=== PATIENT | female | born 1990 | race Caucasian/White ===

== ENCOUNTER 2018-09-27 20:28 | Emergency (ER) | payer OTHER ==
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
--- NOTE | 2018-09-27 21:05 | RAD REPORT ---
EXAM DESCRIPTION: CT - C Spine Wo Con - 09/27/2018 8:58 pm COMPARISON: None. TECHNIQUE: Axial 2 mm thick images of the cervical spine were obtained with sagittal and coronal rec onstruction images generated and reviewed. All CT scans are performed using dose optimization technique as appropriate and may include automated exposure control or mA/KV adjustment according to patient size. FINDINGS: Cervical body height and alignment are normal. No disk space narrowing. No fracture or acu te bony abnormality. No paraspinal mass or hematoma. Central canal detail is inherently limited on CT imaging. IMPRESSION: Negative CT cervical spine examination.
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
[2018-09-27] MEDS ORDERED: KETOROLAC 30 MG/ML INJ ONE (22:02)
[2018-09-27] MEDS ORDERED: CYCLOBENZAPRINE 10 MG TAB ONE (22:06)
== END 2018-09-27 22:12 | disposition home or self-care (01) ==
LOC: ER 20:28
DX: S13.9XXA Sprain of joints and ligaments of unspecified parts of neck, initial encounter (principal); V49.9XXA Car occupant (driver) (passenger) injured in unspecified traffic accident, initial encounter
CPT/HCPCS: 70486; 72125; 96372; 99284

== ENCOUNTER 2020-02-06 17:17 | Emergency (ER) | payer OTHER ==
--- OUTSIDE RECORDS SUMMARY | 2020-02-06 19:16 | XMS REPORT | Continuity of Care Document ---
:1990 Author Organization [facility] t Address [address] [place] [address] Dr. Claire [address] [place] [id number] Care Team Providers Name Role Phone Unavailable Unavailable Unavailable Problems This patient has no known problems. Allergies, Adverse Reactions, Alerts This patient has no known allergies or adverse reactions. Medications This patient has no known medications. Procedures This patient has no known procedures. Results This patient has no known results.
[2020-02-06] MEDS ORDERED: NA CHLORIDE 0.9% 1,000 ML ONE (20:06)
[2020-02-06] MEDS ORDERED: METOCLOPRAMIDE 10 MG/2mL INJ ONE (20:06)
[2020-02-06] MEDS ORDERED: ACETAMINOPHEN 500 MG TAB ONE (20:06)
[2020-02-06] MEDS ORDERED: NA CHLORIDE 0.9% 100 ML IV ONE (20:06)
[2020-02-06] MEDS ORDERED: DIPHENHYDRAMINE 50 MG/ML VIAL ONE (20:06)
[2020-02-06 20:10] LABS: Urine Blood NEGATIVE (NEG); Urine Glucose TRACE (NEG); Urine Protein NEGATIVE (NEG)
[2020-02-06 20:23] LABS: Absolute Lymphocytes (CBC) 2.1 K/uL (0.7-4.9); Hematocrit 37.3 % (36.0-45.0); Lymphocytes % 19.9 % (15.3-44.8); MPV 8.8 fL (7.6-11.3); RBC Red Blood Cell Count 4.14 M/uL (3.86-4.86)
[2020-02-06 20:59] LABS: BUN Blood Urea Nitrogen 5 mg/dL (7-18); Bicarbonate 27 mmol/L (21-32); Glucose Level 72 mg/dL (74-106); HCG, Quantitative 11278 mIU/mL (1-3); Potassium 3.6 mmol/L (3.5-5.1); Sodium Level 137 mmol/L (136-145)
--- NOTE | 2020-02-06 21:36 | ER ---
Nurse's Notes [facility] Name: Perico Quigley Age: 30 yrs Sex: Female : 1990 Arrival Date: 02/06/2020 Time: 17:22 Bed 19 Private MD: Diagnosis: 16 weeks gestation of ;Pelvic Pain;Headache Presentation: 02/05 17:26 Chief complaint: Patient states: "I experienced a sharp pain day in my cervix area ss for about 15 minutes and I felt a gerardo of fluid. I'm 16 weeks . But I don't know if it was the bad kind of fluid or if I just peed on myself. I also have headaches now and pain and pressure behind my right eye.". Coronavirus screen: Proceed with normal triage. Patient denies a cough. Patient denies shortness of breath or difficulty breathing. Patient denies measured and/or subjective temperature greater than 100.4F prior to today's visit. Patient denies travel on a cruise ship or to a country the [facility] currently lists as an affected area. Patient denies contact with known and/or suspected case of COVID-19. Ebola Screen: Patient denies exposure to infectious person. Patient denies travel to an Ebola-affected area in the 21 days before illness onset. Risk Assessment: Do you want to hurt yourself or someone else? Patient reports no desire to harm self or others. 17:26 Method Of Arrival: Ambulatory 17:26 Acuity: SHERMAN 3 ss 17:29 Initial Sepsis Screen: Does the patient meet any 2 criteria? No. Patient's initial ss sepsis screen is negative. Does the patient have a suspected source of infection? No. Patient's initial sepsis screen is negative. Onset of symptoms was February 04, 2020. 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 - Social history:: Smoking status: Patient denies any tobacco usage or history of. Screenin:52 Abuse screen: Denies threats or abuse. Denies injuries from another. Nutritional mg2 screening: No deficits noted. Tuberculosis screening: No symptoms or risk factors identified. Fall Risk IV access (20 points). Assessment: 19:32 General: Appears in no apparent distress. comfortable, Behavior is calm, cooperative. mg2 Pain: Complains of pain in head. Neuro: Level of Consciousness is awake, alert, obeys commands, Oriented to person, place, time, situation. Cardiovascular: Capillary refill < 3 seconds Patient's skin is warm and dry. Respiratory: Airway is patent Respiratory effort is even, unlabored, Respiratory pattern is regular, symmetrical. GI: No deficits noted. : No deficits noted. EENT: No deficits noted. Derm: Skin is intact, is healthy with good turgor, Skin is pink, warm \\T\\ dry. normal. Vital Signs: 17:26 BP 127 / 84; Pulse 107; Resp 16; Temp 99.0; Pulse Ox 100% on R/A; Weight 83.91 kg; ss Height 5 ft. 5 in. (165.10 cm); Pain 3/10; 19:30 BP 119 / 86; Pulse 95; Resp 18; Pulse Ox 100% on R/A; mg2 20:52 BP 128 / 76; Pulse 78; Resp 18; Pulse Ox 100% on R/A; mg2 21:45 BP 122 / 78; Pulse 85; Resp 18; Temp 98.8; Pulse Ox 100% on R/A; mg2 17:26 Body Mass Index 30.78 (83.91 kg, 165.10 cm) ED Course: 17:22 Patient arrived in ED. as 17:29 Triage completed. ss 17:30 Arm band placed on right wrist. 19:11 Jono Ivey MD is Attending Physician. [facility] 19:18 Saulo Taylor, SARIAH is Primary Nurse. mg2 20:00 Inserted saline lock: 20 gauge in right antecubital area, using aseptic technique. mg2 Blood collected. 20:52 Patient has correct armband on for positive identification. Pulse ox on. NIBP on. Door mg2 closed. Warm blanket given. 20:52 No provider procedures requiring assistance completed. mg2 21:39 Transvaginal Ob In Process Unspecified. EDMS 21:45 IV discontinued, intact, bleeding controlled, No redness/swelling at site. Pressure mg2 dressing applied. Administered Medications: 20:00 Drug: NS 0.9% 1000 ml Route: IV; Rate: 1000 ml; Site: right antecubital; mg2 21:42 Follow up: Response: No adverse reaction; IV Status: Completed infusion; IV Intake: mg2 1000ml 20:00 Drug: Reglan 10 mg Route: IVP; Site: right antecubital; mg2 21:41 Follow up: Response: No adverse reaction mg2 20:00 Drug: Benadryl 50 mg Route: IVP; Site: right antecubital; mg2 21:41 Follow up: Response: No adverse reaction; Marked relief of symptoms mg2 20:32 Drug: Tylenol 1000 mg Route: PO; mg2 21:41 Follow up: Response: No adverse reaction; Marked relief of symptoms mg2 Intake: 21:42 IV: 1000ml; Total: 1000ml. mg2 Outcome: 21:35 Discharge ordered by . [email or web address] 21:45 Discharged to home ambulatory. mg2 21:45 Condition: stable 21:45 Discharge instructions given to patient, Instructed on discharge instructions, follow mg2 up and referral plans. Demonstrated understanding of instructions, follow-up care. 21:48 Patient left the ED. mg2 Signatures: Dispatcher [employer] EDMS Angélica Bueno Shelby, RN RN ss Saulo Taylor RN RN mg2 Jono Ivey MD MD mh7 Corrections: (The following items were deleted from the chart) 17:43 17:26 BP 127 / 84; Pulse 17bpm; Resp 16bpm; Pulse Ox 100% RA; Temp 99.0F; 83.91 kg; ss Height 5 ft. 5 in.; BMI: 30.7; Pain 3/10; ss 19:41 19:32 Musculoskeletal: Circulation, motion, and sensation intact. Capillary refill < 3 mg2 seconds, Reports pain in right scapula to the neck mg2
--- NOTE | 2020-02-06 21:36 | EDPHYS ---
Physician Documentation [facility] Name: Perico Quigley Age: 30 yrs Sex: Female : 1990 Arrival Date: 02/06/2020 Time: 17:22 Bed 19 Private MD: ED Physician Jono Ivey HPI: 02/05 19:56 This 30 yrs old Female presents to ER via Ambulatory with complaints of mh7 Vaginal Discharge - 16 wks preg, Eye Pain, Pelvic Pain. 19:56 The patient presents to the emergency department with abdominal pain, of the pelvis, mh7 that started 2 day(s) ago, described as sharp, possible fluid leakage. The estimated gestational age is 16 weeks. course: care: private OB physician, Leakage of Fluid: none appreciated, Ultrasound: the patient had an ultrasound, which was normal, Risk/complications: no obvious risks or complications are appreciated. Previous pregnancies: in previous pregnancies patient has had. Associated signs and symptoms: Pertinent negatives: abdominal pain, chest pain, diarrhea, dysuria, fever, frequency, nausea, ruptured membranes, seizure, shortness of breath, vaginal bleeding, vomiting. Patient states that she had a sharp pain to her pelvic area two days ago then had some vaginal discharge of fluid. She also started having a headache 2 days ago on the right side of her head. She denies any fever, neck pain, nausea, vomiting, abdominal pain, chest pain, SOB, diarrhea, dysuria, or dizziness. 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 - Social history:: Smoking status: Patient denies any tobacco usage or history of. ROS: 19:56 Constitutional: Negative for fever, chills, and weight loss, Eyes: Negative for injury, mh7 pain, redness, and discharge, ENT: Negative for injury, pain, and discharge, Neck: Negative for injury, pain, and swelling, Cardiovascular: Negative for chest pain, palpitations, and edema, Respiratory: Negative for shortness of breath, cough, wheezing, and pleuritic chest pain, Abdomen/GI: Negative for abdominal pain, nausea, vomiting, diarrhea, and constipation, Back: Negative for injury and pain. 19:56 MS/Extremity: Negative for injury and deformity, Skin: Negative for injury, rash, and discoloration, Psych: Negative for depression, anxiety, suicide ideation, homicidal ideation, and hallucinations, Allergy/Immunology: Negative for hives, rash, and allergies, Endocrine: Negative for neck swelling, polydipsia, polyuria, polyphagia, and marked weight changes, Hematologic/Lymphatic: Negative for swollen nodes, abnormal bleeding, and unusual bruising. 19:56 : Positive for pelvic pain, vaginal discharge, Negative for urinary symptoms, urinary frequency, small amounts, hematuria, flank pain, burning with urination, difficulty urinating, bladder incontinence, foul smelling urine, vaginal bleeding, vaginal itching, menstrual abnormality, missed period. Exam: 19:56 Constitutional: This is a well developed, well nourished patient who is awake, alert, mh7 and in no acute distress. Head/Face: Normocephalic, atraumatic. Eyes: Pupils equal round and reactive to light, extra-ocular motions intact. Lids and lashes normal. Conjunctiva and sclera are non-icteric and not injected. Cornea within normal limits. Periorbital areas with no swelling, redness, or edema. ENT: Nares patent. No nasal discharge, no septal abnormalities noted. Tympanic membranes are normal and external auditory canals are clear. Oropharynx with no redness, swelling, or masses, exudates, or evidence of obstruction, uvula midline. Mucous membranes moist. Neck: Trachea midline, no thyromegaly or masses palpated, and no cervical lymphadenopathy. Supple, full range of motion without nuchal rigidity, or vertebral point tenderness. No Meningismus. Chest/axilla: Normal chest wall appearance and motion. Nontender with no deformity. No lesions are appreciated. Cardiovascular: Regular rate and rhythm with a normal S1 and S2. No gallops, murmurs, or rubs. Normal PMI, no JVD. No pulse deficits. Respiratory: Lungs have equal breath sounds bilaterally, clear to auscultation and percussion. No rales, rhonchi or wheezes noted. No increased work of breathing, no retractions or nasal flaring. Abdomen/GI: Soft, non-tender, with normal bowel sounds. No distension or tympany. No guarding or rebound. No evidence of tenderness throughout. Back: No spinal tenderness. No costovertebral tenderness. Full range of motion. Skin: Warm, dry with normal turgor. Normal color with no rashes, no lesions, and no evidence of cellulitis. MS/ Extremity: Pulses equal, no cyanosis. Neurovascular intact. Full, normal range of motion. Neuro: Awake and alert, GCS 15, oriented to person, place, time, and situation. Cranial nerves II-XII grossly intact. Motor strength 5/5 in all extremities. Sensory grossly intact. Cerebellar exam normal. Normal gait. Psych: Awake, alert, with orientation to person, place and time. Behavior, mood, and affect are within normal limits. 02/06 02:17 : CVA tenderness, is absent, Pelvic Exam: The exam is refused by the [facility] patient/guardian. The risks and consequences are understood by the patient, Gravid exam: Fundal height: consistent with gestational age, Bladder: is normal, Rectal exam: is refused by patient or guardian. Vital Signs: 02/05 17:26 BP 127 / 84; Pulse 107; Resp 16; Temp 99.0; Pulse Ox 100% on R/A; Weight 83.91 kg; ss Height 5 ft. 5 in. (165.10 cm); Pain 3/10; 19:30 BP 119 / 86; Pulse 95; Resp 18; Pulse Ox 100% on R/A; mg2 20:52 BP 128 / 76; Pulse 78; Resp 18; Pulse Ox 100% on R/A; mg2 21:45 BP 122 / 78; Pulse 85; Resp 18; Temp 98.8; Pulse Ox 100% on R/A; mg2 17:26 Body Mass Index 30.78 (83.91 kg, 165.10 cm) MDM: 19:47 Patient medically screened. [facility] 21:33 Differential diagnosis: Basilio montoya, delivery of infant, threatened Ab, inevitable mh7 Ab, complete Ab, retained Ab, septic Ab, missed Ab. Data reviewed: vital signs, nurses notes, lab test result(s), Beta HCG: CBC, electrolytes, urinalysis, radiologic studies, ultrasound. Counseling: I had a detailed discussion with the patient and/or guardian regarding: the historical points, exam findings, and any diagnostic results supporting the discharge/admit diagnosis, lab results, radiology results, the need for outpatient follow up, to return to the emergency department if symptoms worsen or persist or if there are any questions or concerns that arise at home. 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 Interpretation: normal. Response to treatment: the patient's symptoms have resolved after treatment, the patient's blood pressure is in an acceptable range, mental status has returned to baseline, the patient no longer shows bradycardia, the patient is not short of breath, the patient is not tachycardic, the patient's pain is gone, the patient's temperature has normalized. 02/05 19:25 Order name: Urine Dipstick--Ancillary (enter results); Complete Time: 21: nc 02/05 19:25 Order name: Urine --Ancillary (enter results); Complete Time: 21:01 nc 02/05 19:46 Order name: Abo/rh Typing [facility] 02/05 19:46 Order name: Basic Metabolic Panel; Complete Time: 21:01 [facility] 02/05 19:46 Order name: CBC with Diff; Complete Time: 21:01 [facility] 02/05 19:46 Order name: Quantitative Hcg; Complete Time: 21:01 [facility] 02/05 19:46 Order name: IV Saline Lock; Complete Time: 20:32 [facility] 02/05 19:46 Order name: Labs collected and sent; Complete Time: 20:32 [facility] 02/05 19:46 Order name: NPO; Complete Time: 20:32 [facility] 02/05 19:46 Order name: US Transvaginal Ob [facility] 02/05 19:46 Order name: Urine Dipstick-Ancillary (obtain specimen); Complete Time: 20:32 [facility] Administered Medications: 02/05 20:00 Drug: NS 0.9% 1000 ml Route: IV; Rate: 1000 ml; Site: right antecubital; mg2 21:42 Follow up: Response: No adverse reaction; IV Status: Completed infusion; IV Intake: mg2 1000ml 20:00 Drug: Reglan 10 mg Route: IVP; Site: right antecubital; mg2 21:41 Follow up: Response: No adverse reaction mg2 20:00 Drug: Benadryl 50 mg Route: IVP; Site: right antecubital; mg2 21:41 Follow up: Response: No adverse reaction; Marked relief of symptoms mg2 20:32 Drug: Tylenol 1000 mg Route: PO; mg2 21:41 Follow up: Response: No adverse reaction; Marked relief of symptoms mg2 Disposition: 02/06/20 21:35 Discharged to Home. Impression: 16 weeks gestation of , Pelvic Pain, Headache. - Condition is Stable. - Discharge Instructions: Abdominal Pain During , [id number], General Headache Without Cause, [id number]. - Medication Reconciliation Form, Thank You Letter, Antibiotic Education, Prescription Opioid Use form. - Follow up: Private Physician; When: 1 - 2 days; Reason: Worsening of condition, Recheck today's complaints, Re-evaluation by your physician. - Problem is new. - Symptoms are resolved. Signatures: Dispatcher [employer] [facility] Becca Vila RN RN Saulo Taylor RN RN [facility] [place] Jono Ivey MD MD mh7 Corrections: (The following items were deleted from the chart) 21:48 21:35 02/06/2020 21:35 Discharged to Home. Impression: 16 weeks gestation of ; mg2 Pelvic Pain; Headache. Condition is Stable. Forms are Medication Reconciliation Form, Thank You Letter, Antibiotic Education, Prescription Opioid Use. Follow up: Private Physician; When: 1 - 2 days; Reason: Worsening of condition, Recheck today's complaints, Re-evaluation by your physician. Problem is new. Symptoms are resolved. mh7
--- NOTE | 2020-02-06 22:20 | RAD REPORT ---
EXAM DESCRIPTION: US - Transvaginal OB - 02/06/2020 9:38 pm COMPARISON: none FINDINGS: The uterus measures 15 x 8 x 11 centimeters. A normal appearing gestational sac is present within th e endometrium. Normal amniotic fluid. Cardiac activity 143 beats per minute Single live intrauterine in breech presentation. The placenta is posterior. A 4.2 x 2.8 orion timeter isoechoic structure lies between the placenta and uterine wall. [place]-rump length 11.3 centimeters. Abdominal circumference 11.2 centimeter 17 weeks 0 days Femur length 2 centimeters 15 weeks 6 days Cervix is closed measuring 4.1 centimeters Right hand left ovary unremarkable. Right and left adnexal unremarkable IMPRESSION: Single live intrauterine with an estimated gestational age 16 weeks 3 days PAULINO 07/20/2020 Breech presentation Normal amniotic fluid 4.2 x 2.8 centimeter isoechoic structure between the placenta and uterine wall may represent a contra ction, fibroid or less likely retroplacental bleed. It is recommended that the patient have followup ultrasound in a couple of weeks for re-evaluation. A survey can also be performed at that time
== END 2020-02-06 21:48 | disposition home or self-care (01) ==
LOC: ER 17:17
DX: O26.892 Other specified pregnancy related conditions, second trimester (principal); Z3A.16 16 weeks gestation of pregnancy; Z88.1 Allergy status to other antibiotic agents; Z91.048 Other nonmedicinal substance allergy status
CPT/HCPCS: 96361; 85025; 80048; 36415; 86900; 81025; 86901; 84702; 81003; 76817; 96375; 96374; 99284; J2765; J1200; J7030